=== PATIENT | female | born 1975 | race American Indian/Alaskan Native ===

== ENCOUNTER 2021-01-26 21:51 | Emergency (ER) | payer MEDICAID ==
[2021-01-26] MEDS ORDERED: ASPIRIN 325 MG TAB PO ONE (22:33)
[2021-01-27 00:03] LABS: Basophils # (Auto) 0.1 K/mm3 (0.0-0.1); Basophils % (Auto) 0.6 % (0.0-1.8); Eosinophils # (Auto) 0.1 K/mm3 (0.0-0.4); Eosinophils % (Auto) 1.5 % (0.0-4.3); Lymphocytes # (Auto) 1.9 K/mm3 (1.2-5.4); Mean Corpuscular HGB Conc 34 % (30-34); Mean Corpuscular Volume 97 fl (79-97); Monocytes # (Auto) 1.1 K/mm3 (0.0-0.8); Monocytes % (Auto) 12.2 % (0.0-7.3); Platelet Count 279 K/mm3 (140-440); Red Blood Count 3.93 M/mm3 (3.65-5.03); Red Cell Distribution Width 14.7 % (13.2-15.2)
[2021-01-27 00:28] LABS: Alanine Aminotransferase 19 units/L (7-56); Albumin 4.2 g/dL (3.9-5); Blood Urea Nitrogen 6 mg/dL (7-17); Calcium 9.3 mg/dL (8.4-10.2); Hemolysis Index 14
[2021-01-27 00:29] LABS: BUN/Creatinine Ratio 9
[2021-01-27] MEDS ORDERED: ONDANSETRON 4 MG ODT TAB PO ONE (01:11)
[2021-01-27] MEDS ORDERED: HYDROmorphone 1 MG/1 ML INJ IM ONE (01:11)
[2021-01-27] MEDS ORDERED: dexAMETHasone 20 MG/5 ML VIAL IM ONE (01:11)
--- NOTE | 2021-01-27 01:17 | Emergency Department Report ---
ED General Adult HPI - General Chief complaint: Back Pain/Injury Stated complaint: CHEST/LEG/BACK PAIN/MS FLARE UP PUI?: No Time Seen by Provider: 01/27/21 00:59 Source: patient Mode of arrival: Ambulatory Limitations: No Limitations - History of Present Illness Initial comments: Chief complaint: pain HPI: This is a 45-year-old female with history of progressive multiple sclerosis, prediabetes, atrial fibrillation calcium deficiency anemia presents with body pain for 3 weeks. She was seen by her [place] neurologist twice rec ently given Medrol Dosepak which did not provide any relief. She has back cramping. She feels weak in her arms and legs. She feels that this is a different type of flare. She has had MS since 2015. Her neurologist is Dr. GRIGGS' She has followed by pain management physician: She has been treated with marijuana morphine and Percocet. Patient denied any chest pain during my interview. However she did mention chest pain to triage nurse. -: Gradual, week(s) (3 weeks) Location: back, left, right, upper extremity, lower extremity Consistency: constant Improves with: none Worsens with: none - Related Data Allergies Allergy/AdvReac Type Severity Reaction Status Date / Time clindamycin Allergy Shortness Verified 01/26/21 22:22 of Breath levofloxacin [From Levaquin] Allergy Shortness Verified 01/26/21 22:42 of Breath Penicillins Allergy Shortness Verified 01/26/21 22:42 of Breath watermelon Allergy Swelling Verified 01/26/21 22:42 ED Review of Systems ROS: Stated complaint: CHEST/LEG/BACK PAIN/MS FLARE UP Other details as noted in HPI Comment: All other systems reviewed and negative Constitutional: denies: chills, fever, malaise Respiratory: denies: cough, shortness of breath Gastrointestinal: denies: abdominal pain, nausea, vomiting Neurological: denies: headache, weakness, numbness, paresthesias, confusion, abnormal gait, vertigo ED Past Medical Hx - Past Medical History Previous Medical History?: Yes Hx Diabetes: (pre-diabetic) Hx Asthma: Yes Additional medical history: ms, afib, calcium deficiency, anemia - Surgical History Past Surgical History?: Yes Hx Cholecystectomy: Yes Hx Appendectomy: Yes Additional Surgical History: gastric bypass - Social History Smoking Status: Never Smoker Substance Use Type: Marijuana ED Physical Exam - General Limitations: No Limitations General appearance: alert, in no apparent distress - Head Head exam: Present: atraumatic, normocephalic - Eye Eye exam: Present: normal appearance - ENT ENT exam: Present: mucous membranes moist - Neck Neck exam: Present: normal inspection, full ROM - Respiratory Respiratory exam: Present: normal lung sounds bilaterally. Absent: respiratory distress, wheezes, rales, rhonchi - Cardiovascular Cardiovascular Exam: Present: regular rate, normal rhythm, normal heart sounds. Absent: systolic murmur, diastolic murmur, rubs, gallop - GI/Abdominal GI/Abdominal exam: Present: soft, normal bowel sounds. Absent: distended, tenderness, guarding, rebound - Extremities Exam Extremities exam: Present: normal inspection - Neurological Exam Neurological exam: Present: alert, oriented X3, normal gait - Expanded Neurological Exam Expanded Patient oriented to: Present: person, place, time Speech: Present: fluid speech Cerebellar function: Finger to Nose: Normal Sensory exam: Upper Extremity Light Touch: Normal Motor strength exam: RUE: 5, LUE: 5, RLE: 5, LLE: 5 Best Eye Response (Domingo): (4) open spontaneously Best Motor Response (Domingo): (6) obeys commands Best Verbal Response (Domingo): (5) oriented [place] Total: 15 - Psychiatric Psychiatric exam: Present: normal affect, normal mood - Skin Skin exam: Present: warm, dry, intact, normal color. Absent: rash ED Medical Decision Making - Lab Data Result diagrams: 01/26/21 23:42 01/26/21 23:42 Laboratory Results - last 24 hr 01/26/21 01/26/21 23:42 23:42 WBC 9.2 RBC 3.93 Hgb 13.0 Hct 38.0 MCV 97 MCH 33 H MCHC 34 RDW 14.7 Plt Count 279 Lymph % (Auto) 21.0 Catron % (Auto) 12.2 H Eos % (Auto) 1.5 Baso % (Auto) 0.6 Lymph # (Auto) 1.9 Catron # (Auto) 1.1 H Eos # (Auto) 0.1 Baso # (Auto) 0.1 Seg Neutrophils % 64.7 Seg Neutrophils # 6.0 Sodium 139 Potassium 3.8 Chloride 106.4 Carbon Dioxide 20 L Anion Gap 16 BUN 6 L Creatinine 0.7 Estimated GFR > 60 BUN/Creatinine Ratio 9 Glucose 96 Calcium 9.3 Total Bilirubin 0.60 AST 18 ALT 19 Alkaline Phosphatase 71 Troponin T < 0.010 Total Protein 6.1 L Albumin 4.2 Albumin/Globulin Ratio 2.2 - EKG Data -: EKG Interpreted by Me EKG shows normal: sinus rhythm, axis, intervals, QRS complexes, ST-T waves Rate: normal - EKG Data Interpretation: normal EKG 01/27/21 01:14 EKG 2303 EKG interpreted by me Normal sinus rhythm rate 97 normal axis normal intervals no ST signs anemia - Radiology Data Radiology results: report reviewed Chest radiograph: No acute findings - Medical Decision Making Ms. Romero is a 45-year-old female with progressive MS. She has persistent pain for the last 3 weeks. She has intact strength. No objective findings of neurological deficit. There is no indication for admission for IV steroids. She received IM Decadron and IM hydromorphone in emergency department. I recommended following up with her personal neurologist at [place]. Chest pain work-up initiated per triage protocol. Patient denied report chest pain during my evaluation. Next CBC chemistry within normal limits troponin normal. Critical care attestation.: If time is entered above; I have spent that time in minutes in the direct care of this critically ill patient, excluding procedure time. ED Disposition Clinical Impression: Progressive multiple sclerosis Disposition: -01 TO HOME OR SELFCARE Is pt being admited?: No Does the pt Need Aspirin: No Condition: Stable Referrals: TRINA LEIGH MD [Referring] - 3-5 Days
[2021-01-27 01:30] VITALS: BP 148/81
--- NOTE | 2021-02-01 10:45 | Electrocardiograph Report ---
[facility] Test Date: 2021-01-26 Test Time: 23:03:52 Pat Name: BIBI JSAON Department: Room: Gender: F Knowledge Engineer: SANTOS : 1975 Requested By: JUAN CARLOS CHURCHILL Order Number: [id number] Reading MD: Aden Fraire Measurements Intervals [place] Rate: 89 P: 63 CT: 151 QRS: 20 QRSD: 81 T: 49 QT: 345 QTc: 421 Interpretive Statements Sinus rhythm Low voltage, precordial leads No previous ECG available for comparison Electronically Signed On 02-01-2021 10:45:01 EDT by Aden Fraire
== END 2021-01-27 01:35 | disposition home or self-care (01) ==
LOC: ED 21:51
DX: G35 Multiple sclerosis (principal); E11.9 Type 2 diabetes mellitus without complications; J45.909 Unspecified asthma, uncomplicated; F12.10 Cannabis abuse, uncomplicated; Z90.49 Acquired absence of other specified parts of digestive tract; Z98.890 Other specified postprocedural states; Z88.0 Allergy status to penicillin; Z88.8 Allergy status to other drugs, medicaments and biological substances; Z91.018 Allergy to other foods
CPT/HCPCS: 36415; 71046; 80053; 84484; 85025; 93005; 96372; 99284; J1100; J1170; Q0162

== ENCOUNTER 2021-03-30 13:25 | Emergency (ER) | payer MEDICAID ==
[2021-03-30 14:41] VITALS: BP 133/85
[2021-03-30] MEDS ORDERED: ACETAMINOPHEN 325 MG TAB PO ONE (14:59)
--- NOTE | 2021-03-30 15:05 | Emergency Department Report ---
ED Fall HPI - General Chief Complaint: Fall Stated Complaint: FELL HIT HEAD Time Seen by Provider: 03/30/21 14:53 Source: patient Mode of arrival: Ambulatory - History of Present Illness Initial Comments: Patient presented after a fall. She states that she was short of breath. She was recently discharged from the hospital after being diagnosed with coronavirus. Patient has been isolating at home. She still states that she is weak. She also states that she is short of breath. She fell striking her head. She does not know what she struck. This happened this morning. There is no loss of consciousness. She is not anticoagulated. She is complaining of a slight headache in the left brow area. Patient states that she is short of breath. She appears to be on home oxygen, but she states that the company called her today and said that they were having a hard time getting home oxygen because they were out of it. Patient has had no new cough. She has had no new fevers. She has had no new blurry vision or double vision. Immunizations are up-to-date. She has no neck pain or back pain. She has no new chest pain from the fall. She states that she just feels weak all over and that is chronic for her as well. She does have a diagnosis of MS and states that that is at baseline. - Related Data Allergies Allergy/AdvReac Type Severity Reaction Status Date / Time clindamycin Allergy Shortness Verified 01/26/21 22:22 of Breath levofloxacin [From Levaquin] Allergy Shortness Verified 01/26/21 22:42 of Breath Penicillins Allergy Shortness Verified 01/26/21 22:42 of Breath watermelon Allergy Swelling Verified 01/26/21 22:42 ED Review of Systems ROS: Stated complaint: FELL HIT HEAD Other details as noted in HPI Comment: All other systems reviewed and negative Constitutional: denies: fever Eyes: denies: vision change ENT: denies: dental pain Respiratory: no symptoms reported, shortness of breath Cardiovascular: denies: chest pain Endocrine: denies: increased thirst, increased urine Gastrointestinal: denies: abdominal pain Genitourinary: denies: dysuria Musculoskeletal: denies: joint swelling Skin: denies: rash Neurological: as per HPI, headache Hematological/Lymphatic: denies: easy bruising ED Past Medical Hx - Past Medical History Previous Medical History?: Yes Hx Diabetes: (pre-diabetic) Hx Asthma: Yes Additional medical history: ms, afib, calcium deficiency, anemia - Surgical History Past Surgical History?: Yes Hx Cholecystectomy: Yes Hx Appendectomy: Yes Additional Surgical History: gastric bypass - Family History Family history: asthma - Social History Smoking Status: Never Smoker Substance Use Type: Marijuana ED Physical Exam - General Limitations: Physical Limitation General appearance: alert, in no apparent distress - Head Head exam: Present: other (There is swelling noted in the left brow area with a superficial laceration to the left eyelid and brow. This is well approximated. There is local tenderness but there is no step-off or deformity.) - Eye Eye exam: Present: normal appearance, PERRL, EOMI, other (There is a subconjunctival hematoma in the left eye.). Absent: scleral icterus - ENT ENT exam: Present: normal exam, normal orophraynx - Neck Neck exam: Present: full ROM. Absent: tenderness, meningismus - Respiratory Respiratory exam: Present: normal lung sounds bilaterally. Absent: respiratory distress - Cardiovascular Cardiovascular Exam: Present: regular rate, normal rhythm - GI/Abdominal GI/Abdominal exam: Present: soft. Absent: tenderness - Extremities Exam Extremities exam: Present: pedal edema (Bilateral and chronic) - Back Exam Back exam: Absent: CVA tenderness (R), CVA tenderness (L) - Neurological Exam Neurological exam: Present: alert, oriented X3, normal gait. Absent: motor sensory deficit - Psychiatric Psychiatric exam: Present: normal affect, normal mood - Skin Skin exam: Present: warm, dry ED Course Vital Signs 03/30/21 14:40 Temperature 98.2 F Pulse Rate 67 Respiratory 20 Rate Blood Pressure 133/85 O2 Sat by Pulse 99 Oximetry - Reevaluation(s) Reevaluation #1: 03/30/21 15:04 Wound was cleaned. Patient was given Tylenol. She was discharged. ED Medical Decision Making - Medical Decision Making Patient presents with injuries from a fall. This injury is superficial and does not require suture repair. There is no orbital rim step-off or deformity. She is not anticoagulated. There is no loss of consciousness. She has no neurologic deficit. I do not believe CT is necessary. Patient did state that she was short of breath, but remained at 95 to 98% saturations on room air even with ambulation. She had clear breath sounds. She did not appear to be in distress. I do not believe we need to follow this up. She was diagnosed with coronavirus previously and that has been addressed. Patient states that her legs got weak and that she feels better now. She is currently ambulatory without difficulty. There is no weakness on lower extremity exam that would suggest cord injury or cauda equina. She was comfortable going home. Immuni zations have been up-to-date. Critical Care Time: No Critical care attestation.: If time is entered above; I have spent that time in minutes in the direct care of this critically ill patient, excluding procedure time. ED Disposition Clinical Impression: Laceration of brow without complication Qualifiers: Encounter type: initial encounter Qualified Code(s): S01.81XA - Laceration without foreign body of other part of head, initial encounter Disposition: HOME / SELF CARE / HOMELESS Is pt being admited?: No Does the pt Need Aspirin: No Condition: Stable Instructions: Shortness of Breath, Adult, Srih-zl-Mhir, Laceration Care, Adult, Shortness of Breath, Adult, Nonsutured Laceration Care Additional Instructions: Apply ice to sore areas. Drink plenty water. Continue home medication. Follow-up with your regular doctor for recheck and further management. Use Tylenol for pain.
== END 2021-03-30 16:59 | disposition home or self-care (01) ==
LOC: ED 13:25
DX: S01.81XA Laceration without foreign body of other part of head, initial encounter (principal); W19.XXXA Unspecified fall, initial encounter; Y93.89 Activity, other specified; Y92.89 Other specified places as the place of occurrence of the external cause; Y99.8 Other external cause status; J45.909 Unspecified asthma, uncomplicated; F12.90 Cannabis use, unspecified, uncomplicated
CPT/HCPCS: 99282